=== PATIENT | female | born 1950 | race Caucasian/White ===

== ENCOUNTER 2018-12-10 00:46 | Inpatient (IN) | payer MEDICARE, BC ==
[~2018-12-10] VITALS: Ht 170.2 cm; Wt 80.0 kg
[2018-12-10] VITALS (14 sets, daily range): BP systolic 120–177; BP diastolic 83–110
[~2018-12-10 00:46] MED LIST: ASCO10007 PO; ASPI-611 PO; CARV6.253 PO; CHOL10002 PO; CINN500C15 PEG; COCO1000 PO; ESTROGEN PELLET IM; LACT1CAP65 PO; LIOT5TAB7 PO; MAGN250T11 PO; MELA1TAB28 PO; METH500C6 PO; NIA500ERT PO; OMEG-107 PO; PRAS50CA2 PO; PROG100C6 PO; SAW450CA7 PO; SELE200T25 PO; TEST75PE9 IM; TURM500C7 PO; UBID100C16 PO; [UNRECOGNIZED DRUG - CODE] PO
[2018-12-10 01:32] LABS: PARTIAL THROMBOPLASTIN TIME 28 SECONDS (22-32)
[2018-12-10 01:36] LABS: ALANINE AMINOTRANSFERASE 29 U/L (12-78); ALBUMIN/GLOBULIN RATIO 1.2 (1.1-1.5); ALKALINE PHOSPHATASE 64 IU/L (46-116); ANION GAP 10 (8-16); ASPARTATE AMINO TRANSFERASE 13 U/L (10-37); BILIRUBIN,TOTAL 0.4 MG/DL (0.1-1.0); BLOOD UREA NITROGEN 15 MG/DL (7-18); CALCIUM 9.7 MG/DL (8.5-10.1); CHLORIDE 104 MMOL/L (99-107); CREATININE 0.88 MG/DL (0.40-0.90); GLUCOSE 112 MG/DL (70-104); POTASSIUM 3.7 MMOL/L (3.5-5.1); SODIUM 138 MMOL/L (135-145); TOTAL CARBON DIOXIDE 24.2 MMOL/L (24-32); TOTAL PROTEIN 7.3 G/DL (6.4-8.2); eGFR 64 ML/MIN
--- NOTE | 2018-12-10 01:43 | NUR ---
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 She also said that she has GERD, and that she had been doing alot of bending over. aware.
[2018-12-10 01:47] LABS: BASOPHILS % (AUTO) 0.6 % (0-1); EOSINOPHILS # (AUTO) 0.1 X10'3 (0-0.9); EOSINOPHILS % (AUTO) 1.7 % (0-6); HEMATOCRIT 44.9 % (35.0-45.0); HEMOGLOBIN 15.3 g/dl (12.0-16.0); LYMPHOCYTES # (AUTO) 1.4 X10'3 (1.1-4.8); LYMPHOCYTES % (AUTO) 19.6 % (21-51); MEAN CORPUSCULAR HEMOGLOBIN 30.5 PG (27.0-31.0); MEAN CORPUSCULAR HGB CONC 34.1 g/dL (33.0-36.5); MEAN CORPUSCULAR VOLUME 89.6 FL (78-98); MEAN PLATELET VOLUME 10.1 FL (7.4-10.4); MONOCYTES # (AUTO) 0.5 X10'3 (0-0.9); MONOCYTES % (AUTO) 6.7 % (2-12); NEUTROPHILS # (AUTO) 5.2 X10'3 (1.8-7.7); NEUTROPHILS % (AUTO) 71.4 % (42-75); PLATELET COUNT 248 X10'3 (140-440); RED BLOOD COUNT 5.01 X10'6 (4.20-5.60); RED CELL DISTRIBUTION WIDTH 13.8 % (11.5-14.5); WHITE BLOOD COUNT 7.3 X10'3 (4.5-11.0)
[2018-12-10] MEDS ORDERED: normal saline 1000ml 1,000 ML IV SCH (01:52)
[2018-12-10] MEDS ORDERED: aminophylline 250mg/10ml inj. IV PRN (01:55)
[2018-12-10] MEDS ORDERED: HYDROcodone/acetaminophen 5mg/325mg tablet PO PRN (01:55)
[2018-12-10] MEDS ORDERED: ondansetron/PF 4mg/2ml inj IV PRN (01:55)
[2018-12-10] MEDS ORDERED: mag hydrox/Alum hydrox/simeth 30ml oral suspension PO PRN (01:55)
[2018-12-10] MEDS ORDERED: regadenoson 0.4mg/5ml syringe IV ONE ×3 (01:55→12:40)
[2018-12-10] MEDS ORDERED: acetaminophen 325mg tablet PO PRN (01:55)
[2018-12-10] MEDS ORDERED: metoprolol tartrate 1mg/ml inj IV PRN (01:55)
[2018-12-10] MEDS ORDERED: nitroGLYCERIN 0.4mg SUBLingual tab SL PRN ×2 (01:55→22:55)
[2018-12-10] MEDS ORDERED: Melatonin 3mg tablet PO PRN (01:55)
[2018-12-10] MEDS ORDERED: magnesium hydroxide 30ml (MOM) UD suspension PO PRN (01:55)
[2018-12-10] MEDS ORDERED: aspirin 81mg tab.chew PO ONE (02:05)
[2018-12-10] MEDS: HYDROcodone/acetaminophen 10/325mg tab PO PRN ×2 (04:08→21:28)
--- NOTE | 2018-12-10 04:09 | NUR ---
MEDICATED FOR C/O L LATERAL CHEST PAIN, KEEPING PT AWAKE.
[2018-12-10 04:29] LABS: CHOL/HDL RATIO 5.1 (0.00-4.99); CHOLESTEROL 235 MG/DL (0-200); HDL CHOLESTEROL 46 MG/DL (35-60); LDL CHOLESTEROL 166 MG/DL (50-100); TRIGLYCERIDES 134 MG/DL (20-135)
--- NOTE | 2018-12-10 04:31 | NUR ---
ATTEMPTED TO CALL REPORT, RESEARCH EDITOR STATED THAT NURSES UPSTAIRS WILL CALL TO GET REPORT WHEN READY.
--- NOTE | 2018-12-10 04:55 | NUR ---
PAIN IMPROVED AFTER NORCO, PT NOW ABLE TO SLEEP.
--- NOTE | 2018-12-10 06:45 | NUR ---
Problems reprioritized. Patient report given, questions answered & plan of care reviewed with JONNIE Cuellar. Addendum: 12/10/18 at 0646 by Inés Warren RN Amended: Links added.
--- NOTE | 2018-12-10 07:07 | NUR ---
PAGER ID: [phone] MESSAGE: [phone] Britt Hernandez.trending upward. do you want another EKG? do you want proBNB? BP 177/106 man. R arm lying. any new orders? stress test this AM. Alisa [phone]
[2018-12-10] MEDS ORDERED: PANT20TA3 PO (07:56)
[2018-12-10] MEDS ORDERED: POTA10TA19 PO (07:57)
[2018-12-10] MEDS ORDERED: ACYC-202 PO (07:59)
[2018-12-10] MEDS ORDERED: CARSR60C PO (08:00)
--- NOTE | 2018-12-10 08:36 | NUR ---
PAGER ID: [phone] MESSAGE: [phone] Britt morrissey Nuc. med. not wanting to do stress test with SBP at 180. Pt. takes Coreg at home. Thank you Alisa [phone]
[2018-12-10] MEDS ORDERED: MAGN400C PO (09:50)
[2018-12-10] MEDS ORDERED: PANT-47 PO (09:50)
[2018-12-10] MEDS ORDERED: OMEG1CAP46 PO (09:52)
--- NOTE | 2018-12-10 10:49 | NUR ---
PAGER ID: [phone] MESSAGE: [id number] Britt Deng 188/90 auto 160/100 manual pt. states severe headache. Refusing anything medication for pain. DC fluids? BP MED? 1868
--- NOTE | 2018-12-10 10:58 | NUR ---
New order for once only 6.25mg Coreg PO
[2018-12-10] MEDS ORDERED: furosemide 20 MG/2 ML vial IV ONE (11:05)
[2018-12-10] MEDS: carvedilol 6.25mg tablet PO ONE ×2 (11:09→11:18)
[2018-12-10] MEDS: vitamin D (cholecalciferol) 1,000 unit tablet PO SCH (11:56)
[2018-12-10] MEDS ORDERED: aminophylline inj. 10 ML IV ONE (12:31)
--- NOTE | 2018-12-10 13:40 | NUR ---
PAGER ID: [phone] MESSAGE: [id number] Britt Deng pt. back from stress tests- results avail. to you? Pt wants to eat now. Can she have a diet please? Alisa [phone]
--- NOTE | 2018-12-10 13:44 | NUR ---
PAGER ID: [phone] MESSAGE: [id number] Britt Deng forgot to ask you- Did you want a forth troponin? Alisa [phone]
[2018-12-10] MEDS ORDERED: methylPREDNISolone sod succ 125mg/2ml vial IV SCH (16:00)
--- NOTE | 2018-12-10 19:26 | NUR ---
Patient in room DEVAN 360. I have received report from Alisa CRISTINA and had the opportunity to ask questions and assume patient care.
[2018-12-10] MEDS ORDERED: non-formulary drug (Melatonin/Pyridoxine HCl (B6) (Melatonin 3 mg Tablet) 3 TAB) PO SCH (21:00)
[2018-12-10] MEDS: niacin 500mg ER (Niaspan) tablet PO SCH (21:26)
[2018-12-10] MEDS: carvedilol 6.25mg tablet PO SCH (21:26)
--- NOTE | 2018-12-10 23:08 | NUR ---
At approx. 2230 pt was sitting forward in bed short of breath, nauseous and complaining of severe chest pain. Put on 2L via N/C, took vitals (158/104, 95% RA, HR 93) and an EKG. EKG was read by Dr Rushing in ED, no STEMI. Administered Zofran for nausea. Received order for Nitro, however at 2257 pt stated pain was completely gone and she was breathing easier. Nitro not administered and placed in pt specific in the omnicell. Will continue to monitor pt closely.
[2018-12-11] VITALS (14 sets, daily range): BP systolic 102–159; BP diastolic 72–106
--- NOTE | 2018-12-11 | NUR ---
Pt had second episode of severe chest pain. Administered SL Nitro and pain almost instantly went away. Pt has residual headache 8/, administered Tylenol. Will continue to monitor.
[2018-12-11] MEDS: nitroGLYCERIN 0.4mg SUBLingual tab SL PRN ×2 (01:41→11:12)
[2018-12-11] MEDS: HYDROcodone/acetaminophen 10/325mg tab PO PRN ×2 (01:43→20:35)
[2018-12-11] MEDS ORDERED: metoclopramide 5 mg/ml inj IV ONE (01:55)
[2018-12-11] MEDS ORDERED: diphenhydrAMINE 50 mg/ml inj IV ONE (01:55)
[2018-12-11 06:00] LABS: BASOPHILS % (AUTO) 0.5 % (0-1); EOSINOPHILS # (AUTO) 0.1 X10'3 (0-0.9); EOSINOPHILS % (AUTO) 1.4 % (0-6); HEMATOCRIT 45.9 % (35.0-45.0); HEMOGLOBIN 15.6 g/dl (12.0-16.0); LYMPHOCYTES # (AUTO) 1.9 X10'3 (1.1-4.8); LYMPHOCYTES % (AUTO) 27.4 % (21-51); MEAN CORPUSCULAR HEMOGLOBIN 30.4 PG (27.0-31.0); MEAN CORPUSCULAR HGB CONC 33.9 g/dL (33.0-36.5); MEAN CORPUSCULAR VOLUME 89.7 FL (78-98); MEAN PLATELET VOLUME 9.3 FL (7.4-10.4); MONOCYTES # (AUTO) 0.7 X10'3 (0-0.9); MONOCYTES % (AUTO) 9.4 % (2-12); NEUTROPHILS # (AUTO) 4.3 X10'3 (1.8-7.7); NEUTROPHILS % (AUTO) 61.3 % (42-75); PLATELET COUNT 205 X10'3 (140-440); RED BLOOD COUNT 5.12 X10'6 (4.20-5.60); RED CELL DISTRIBUTION WIDTH 13.7 % (11.5-14.5)
[2018-12-11 06:23] LABS: PARTIAL THROMBOPLASTIN TIME 27 SECONDS (22-32)
[2018-12-11 06:31] LABS: ANION GAP 12 (8-16); BLOOD UREA NITROGEN 20 MG/DL (7-18); BUN/CREATININE RATIO 21.3 (6.6-38.0); CALCIUM 9.9 MG/DL (8.5-10.1); CHLORIDE 104 MMOL/L (99-107); CREATININE 0.94 MG/DL (0.40-0.90); GLUCOSE 113 MG/DL (70-104); POTASSIUM 3.8 MMOL/L (3.5-5.1); SODIUM 139 MMOL/L (135-145); TOTAL CARBON DIOXIDE 22.6 MMOL/L (24-32); eGFR 60 ML/MIN
--- NOTE | 2018-12-11 06:53 | NUR ---
Problems reprioritized. Patient report given, questions answered & plan of care reviewed with Alisa CRISTINA.
[2018-12-11] MEDS ORDERED: non-formulary drug (Ubidecarenone (Coq-10) 100 MG) PO SCH (08:00)
[2018-12-11] MEDS: carvedilol 6.25mg tablet PO SCH ×2 (08:15→20:35)
[2018-12-11] MEDS: aspirin 81mg tablet.DR PO SCH (08:15)
[2018-12-11] MEDS: magnesium oxide 400mg tablet PO SCH (08:15)
[2018-12-11] MEDS: vitamin D (cholecalciferol) 1,000 unit tablet PO SCH (08:15)
[2018-12-11] MEDS: pantoprazole 40mg Tablet.DR PO SCH (08:15)
[2018-12-11] MEDS: acetaminophen 325mg tablet PO PRN ×2 (08:16)
--- NOTE | 2018-12-11 11:23 | NUR ---
Patient complaining of chest pain 7/10 or 8/10 gripping pain to chest radiates to left arm. Patients vitals 140/89 HR 61 Gave one dose of nitro. EKG done Dr Jimenez aware wants patient transferred to [facility] on Nitro drip.
[2018-12-11] MEDS ORDERED: nitroGLYCERIN-Tridil 50MG/D5W 250 ML IV PRN (11:24)
[2018-12-11] MEDS ORDERED: morphine 2 MG/ML inj. syringe IV ONE (11:30)
--- NOTE | 2018-12-11 11:30 | NUR ---
Dr Jimenez would like patient to have a one time dose of 1 Mg Morphine, Aware of allergies which is hallucinations. Ok to give per Dr Jimenez
--- NOTE | 2018-12-11 11:38 | NUR ---
Dr Manriquez aware of patients continuing to have chest pain BP 140/89 HR 61. We are transferring patient to Tele on Nitro drip No change in orders.
[2018-12-11] MEDS: normal saline 1000ml 1,000 ML IV SCH ×2 (11:39→16:56)
[2018-12-11] MEDS ORDERED: LIDOcaine 1% (10mg/ml)w/preservative injection 20ml MDV ONE (12:02)
[2018-12-11] MEDS ORDERED: fentaNYL/PF 50MCG/1 ML 2ML syringe ONE (12:02)
[2018-12-11] MEDS ORDERED: iohexol 350MG/ML 100ml bottle IV ONE ×2 (12:02→12:47)
[2018-12-11] MEDS ORDERED: midazolam 2 mg/2 ml injection ONE (12:02)
--- NOTE | 2018-12-11 12:20 | NUR ---
Patient taken to refuse laborer via wheel chair. label paster aware patient will be going to tele but we dont have room yet but will call when we get a room number.
[2018-12-11] MEDS ORDERED: heparin 1,000unit/ml 10ml vial 10 ML ONE (12:47)
--- NOTE | 2018-12-11 12:50 | NUR ---
Received report from Alisa. 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 Awaiting arrival to [facility] 6025V.
--- NOTE | 2018-12-11 12:59 | NUR ---
Gave report to JONNIE Forte. Belongings will be transfer to room 3014H.
[2018-12-11] MEDS ORDERED: ticagrelor 90mg tablet ONE (13:00)
--- NOTE | 2018-12-11 13:00 | NUR ---
Received from Alisa. Waiting for patient to arrive to [facility].
--- NOTE | 2018-12-11 13:25 | NUR ---
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 Transferred to bed. Patient VS: T: 98.2, HR 80, RR: 16, O2: 92% on room air, BP: 146/92. Patient's right groin puncture site assessed. No hematoma noted. Dressing CDI. Pedal and posterior tibial pulses present. Patient in no acute distress. Will continue to monitor. Dr. Manriquez's orders reviewed and faxed to pharmacy.
[2018-12-11] MEDS ORDERED: OXAZEpam 15mg capsule PO PRN (13:45)
[2018-12-11] MEDS ORDERED: proCHLORperazine 10 MG/2 ml inj IV PRN (13:45)
--- NOTE | 2018-12-11 18:30 | NUR ---
Problems reprioritized. Patient report given, questions answered & plan of care reviewed with Laxmi CRISTINA.
[2018-12-11] MEDS: niacin 500mg ER (Niaspan) tablet PO SCH (20:35)
[2018-12-12 02:00] VITALS: BP 106/64
[2018-12-12] MEDS: HYDROcodone/acetaminophen 10/325mg tab PO PRN (05:11)
[2018-12-12 06:02] LABS: BASOPHILS % (AUTO) 0.3 % (0-1); EOSINOPHILS # (AUTO) 0.1 X10'3 (0-0.9); EOSINOPHILS % (AUTO) 1.3 % (0-6); HEMATOCRIT 43.5 % (35.0-45.0); HEMOGLOBIN 15.1 g/dl (12.0-16.0); LYMPHOCYTES # (AUTO) 1.3 X10'3 (1.1-4.8); LYMPHOCYTES % (AUTO) 17.1 % (21-51); MEAN CORPUSCULAR HEMOGLOBIN 30.9 PG (27.0-31.0); MEAN CORPUSCULAR HGB CONC 34.7 g/dL (33.0-36.5); MEAN CORPUSCULAR VOLUME 89.1 FL (78-98); MEAN PLATELET VOLUME 9.3 FL (7.4-10.4); MONOCYTES # (AUTO) 0.6 X10'3 (0-0.9); MONOCYTES % (AUTO) 8.5 % (2-12); NEUTROPHILS # (AUTO) 5.4 X10'3 (1.8-7.7); NEUTROPHILS % (AUTO) 72.8 % (42-75); PLATELET COUNT 214 X10'3 (140-440); RED BLOOD COUNT 4.88 X10'6 (4.20-5.60); RED CELL DISTRIBUTION WIDTH 13.8 % (11.5-14.5); WHITE BLOOD COUNT 7.4 X10'3 (4.5-11.0)
[2018-12-12 06:08] LABS: ALBUMIN 3.6 G/DL (3.4-5.0); ANION GAP 10 (8-16); BLOOD UREA NITROGEN 19 MG/DL (7-18); CALCIUM 8.9 MG/DL (8.5-10.1); CHLORIDE 106 MMOL/L (99-107); CREATININE 0.95 MG/DL (0.40-0.90); GLUCOSE 111 MG/DL (70-104); POTASSIUM 3.9 MMOL/L (3.5-5.1); SODIUM 139 MMOL/L (135-145); TOTAL CARBON DIOXIDE 23.1 MMOL/L (24-32); eGFR 59 ML/MIN
--- NOTE | 2018-12-12 06:47 | NUR ---
Patient in room PCU 3015. I have received report from Laxmi CRISTINA and had the opportunity to ask questions and assume patient care.
[2018-12-12 07:00] VITALS: BP 121/82
[2018-12-12] MEDS ORDERED: dabigatran 150mg capsule PO SCH (08:00)
[2018-12-12] MEDS ORDERED: ticagrelor 90mg tablet PO SCH (08:00)
[2018-12-12] MEDS ORDERED: atorvastatin 20mg tablet PO SCH (08:00)
[2018-12-12] MEDS: vitamin D (cholecalciferol) 1,000 unit tablet PO SCH (08:04)
[2018-12-12] MEDS: carvedilol 6.25mg tablet PO SCH (08:04)
[2018-12-12] MEDS: aspirin 81mg tablet.DR PO SCH (08:04)
[2018-12-12] MEDS: pantoprazole 40mg Tablet.DR PO SCH (08:04)
[2018-12-12] MEDS: acetaminophen 325mg tablet PO PRN (08:05)
[2018-12-12] MEDS: magnesium oxide 400mg tablet PO SCH (08:05)
[2018-12-12 11:00] VITALS: BP 130/88
--- NOTE | 2018-12-12 12:54 | NUR ---
PAGER ID: [phone] MESSAGE: [id number] Britt Deng pt is wanting to go home as soon as possible, pt has been cleared by Cardiology team to go home. Thank you, Miladis #[phone]
[2018-12-12] MEDS ORDERED: TICA90TA PO (13:39)
[2018-12-12] MEDS ORDERED: ATOR20TA66 PO (13:39)
[2018-12-12] MEDS ORDERED: DABI150C PO (13:49)
--- NOTE | 2018-12-12 14:30 | NUR ---
Reviewed discharge instructions with pt and pt's family. New prescriptions called into [facility] in [place] by Jeremy CRISTINA. IV discontinued with canula intact and tele monitor removed. Pt taken to lobby via wheelchair. Pt left in private vehicle with all of her belongings accompanied by family. Pt alert and oriented X4 and all vital signs within normal limits.
== END 2018-12-12 14:30 | disposition home or self-care (01) | DRG 247 ==
LOC: ER 00:47 → UNDOADMOB 01:52 → SUR 3N 01:52 → INTOOBSV 01:52 → SUR 3N 01:55 → CMPBEDREQ 07:01 → OBSVTOIN 14:40 → PCU 3S 12-11 13:25
PROVIDERS: ADMIT Hospitalist; ATTEND Internal Medicine
PROC: 027035Z Dilation of Coronary Artery, One Artery with Two Drug-eluting Intraluminal Devices, Percutaneous Approach (ICD-10-PCS; principal; 2018-12-11)
PROC: 4A023N7 Measurement of Cardiac Sampling and Pressure, Left Heart, Percutaneous Approach (ICD-10-PCS; 2018-12-11)
PROC: B2151ZZ Fluoroscopy of Left Heart using Low Osmolar Contrast (ICD-10-PCS; 2018-12-11)
PROC: B2111ZZ Fluoroscopy of Multiple Coronary Arteries using Low Osmolar Contrast (ICD-10-PCS; 2018-12-11)
PROC: B41F1ZZ Fluoroscopy of Right Lower Extremity Arteries using Low Osmolar Contrast (ICD-10-PCS; 2018-12-11)
DX: I25.10 Atherosclerotic heart disease of native coronary artery without angina pectoris (principal); I10 Essential (primary) hypertension; K21.9 Gastro-esophageal reflux disease without esophagitis; I48.0 Paroxysmal atrial fibrillation; E78.5 Hyperlipidemia, unspecified; H93.19 Tinnitus, unspecified ear; Z90.710 Acquired absence of both cervix and uterus; Z88.6 Allergy status to analgesic agent; Z79.899 Other long term (current) drug therapy; Z85.3 Personal history of malignant neoplasm of breast; Z92.3 Personal history of irradiation; Z82.49 Family history of ischemic heart disease and other diseases of the circulatory system; Z59.9 Problem related to housing and economic circumstances, unspecified
CPT/HCPCS: 93458; 99285; C9600; 36415; 71045; 78452; 80048; 80053; 80061; 83880; 84484; 85025; 85610; 85730; 87070; 93005; 93017; 99152; 99153; A4620; A6257; A9500; C1760; C1769; C1874; G0378; J0280; J1200; J1644; J2001; J2250; J2270; J2405; J2765; J3010; J7030; Q9967

== ENCOUNTER 2022-04-01 10:51 | Observation (INO) | payer MEDICARE, BC ==
[~2022-04-01] VITALS: Ht 170.2 cm; Wt 88.7 kg
[2022-04-01] VITALS (18 sets, daily range): BP systolic 136–201; BP diastolic 84–103
[~2022-04-01 10:51] MED LIST changes: -ASCO10007 PO; +ATOR20TA66 PO; -CINN500C15 PEG; -COCO1000 PO; +DABI150C PO; -ESTROGEN PELLET IM; -LACT1CAP65 PO; -LIOT5TAB7 PO; -MAGN250T11 PO; -METH500C6 PO; -NIA500ERT PO; -OMEG-107 PO; +OMEG1CAP46 PO; +PANT-47 PO; -PRAS50CA2 PO; -PROG100C6 PO; -SAW450CA7 PO; -SELE200T25 PO; -TEST75PE9 IM; +TICA90TA PO; -TURM500C7 PO; -[UNRECOGNIZED DRUG - CODE] PO
[2022-04-01] MEDS ORDERED: diphenhydrAMINE 25mg capsule PO PRN (11:15)
[2022-04-01] MEDS ORDERED: LISI5TAB22 PO (11:30)
[2022-04-01] MEDS ORDERED: APIX5TAB3 PO (11:30)
[2022-04-01] MEDS ORDERED: MULT-1085 PO (11:30)
[2022-04-01] MEDS ORDERED: ACET-890 PO (11:30)
[2022-04-01] MEDS ORDERED: ATOR40TA72 PO (11:30)
[2022-04-01] MEDS: normal saline 1,000 ML IV SCH ×2 (11:54→21:15)
[2022-04-01 12:06] LABS: BASOPHILS % (AUTO) 0.5 % (0-1); EOSINOPHILS # (AUTO) 0.1 X10'3 (0-0.9); EOSINOPHILS % (AUTO) 1.8 % (0-6); HEMATOCRIT 40.9 % (35.0-45.0); HEMOGLOBIN 13.9 g/dl (12.0-16.0); LYMPHOCYTES # (AUTO) 1.4 X10'3 (1.1-4.8); LYMPHOCYTES % (AUTO) 28.5 % (21-51); MEAN CORPUSCULAR HEMOGLOBIN 29.7 PG (27.0-31.0); MEAN CORPUSCULAR HGB CONC 34.1 g/dL (33.0-36.5); MEAN PLATELET VOLUME 9.3 FL (7.4-10.4); MONOCYTES # (AUTO) 0.4 X10'3 (0-0.9); MONOCYTES % (AUTO) 7.6 % (2-12); NEUTROPHILS % (AUTO) 61.6 % (42-75); PLATELET COUNT 194 X10'3 (140-440); RED CELL DISTRIBUTION WIDTH 14.7 % (11.5-14.5); WHITE BLOOD COUNT 4.9 X10'3 (4.5-11.0)
[2022-04-01 12:14] LABS: ALBUMIN 4.2 G/DL (3.4-5.0); ANION GAP 9 (8-16); BLOOD UREA NITROGEN 13 MG/DL (7-18); BUN/CREATININE RATIO 17.8 (6.6-38.0); CALCIUM 9.3 MG/DL (8.5-10.1); CHLORIDE 105 MMOL/L (99-107); CREATININE 0.73 MG/DL (0.40-0.90); GLUCOSE 88 MG/DL (70-104); MAGNESIUM 1.8 MG/DL (1.5-2.4); POTASSIUM 3.6 MMOL/L (3.5-5.1); SODIUM 140 MMOL/L (135-145); TOTAL CARBON DIOXIDE 25.9 MMOL/L (24-32); eGFR 79 ML/MIN
[2022-04-01] MEDS ORDERED: fentaNYL/PF 50MCG/1 ML 2ML syringe ONE ×2 (13:56→20:36)
[2022-04-01] MEDS ORDERED: LIDOcaine 1% (10mg/ml) 2ml vial ONE (13:56)
[2022-04-01] MEDS ORDERED: nitroGLYCERIN-Tridil 50MG/D5W 250 ML IV ONE (13:56)
[2022-04-01] MEDS ORDERED: verapamil 2.5 mg/ml inj IV ONE (13:56)
[2022-04-01] MEDS ORDERED: heparin 1,000unit/ml 10ml vial 10 ML ONE ×2 (13:56→20:36)
[2022-04-01] MEDS ORDERED: midazolam 1 mg/ML 2ml injection ONE ×3 (13:56→20:36)
[2022-04-01] MEDS ORDERED: iohexol 350MG/ML 100ml bottle IV ONE ×3 (13:57→20:36)
[2022-04-01] MEDS ORDERED: LIDOcaine 1% 30ml preserv. free vial ONE ×2 (14:43→20:36)
[2022-04-01] MEDS ORDERED: clopidogrel 300mg tablet ONE (15:11)
[2022-04-01] MEDS: normal saline 1000ml 1,000 ML IV SCH ×2 (16:00→21:00)
[2022-04-01] MEDS ORDERED: HYDROcodone/acetaminophen 10/325mg tab PO PRN (16:00)
[2022-04-01] MEDS ORDERED: ondansetron/PF 4mg/2ml inj IV PRN (16:00)
[2022-04-01] MEDS ORDERED: HYDROcodone/acetaminophen 5mg/325mg tablet PO PRN (16:00)
--- NOTE | 2022-04-01 22:00 | NUR ---
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 Report given to Inés CRISTINA at bedside on PCU, 8045E. All questions answered.
[2022-04-01] MEDS ORDERED: acetaminophen 325mg tablet PO PRN ×2 (23:55)
[2022-04-02 00:45] VITALS: BP 152/90
[2022-04-02] MEDS: pantoprazole 40mg Tablet.DR PO SCH ×2 (00:55→07:50)
[2022-04-02 01:45] VITALS: BP 150/88
[2022-04-02] MEDS ORDERED: sucralfate 1 gm tablet PO ONE (02:05)
[2022-04-02 02:45] VITALS: BP 151/87
[2022-04-02 03:45] VITALS: BP 148/89
[2022-04-02 06:00] VITALS: BP 170/93
[2022-04-02 07:51] VITALS: BP_SYST 170
[2022-04-02] MEDS ORDERED: carvedilol 6.25mg tablet PO SCH (08:00)
[2022-04-02] MEDS ORDERED: lisinopril 5mg tablet PO SCH (08:00)
[2022-04-02] MEDS ORDERED: multivitamins, therapeutics tablet PO SCH (08:00)
[2022-04-02] MEDS ORDERED: atorvastatin 20mg tablet PO SCH (08:00)
[2022-04-02] MEDS ORDERED: apixaban 5mg tablet PO SCH (08:00)
--- NOTE | 2022-04-02 08:07 | NUR ---
Problems reprioritized. Patient report given, questions answered & plan of care reviewed with Clarita CRISTINA.
[2022-04-02] MEDS ORDERED: clopidogrel 75mg tablet PO SCH (09:00)
== END 2022-04-02 10:17 | disposition home or self-care (01) ==
LOC: SSTAY O 10:51 → PCU 3S 22:42
PROVIDERS: ADMIT Internal Medicine Cardiovascular Disease; ATTEND Internal Medicine Cardiovascular Disease
DX: I25.10 Atherosclerotic heart disease of native coronary artery without angina pectoris (principal); Z95.5 Presence of coronary angioplasty implant and graft; Z79.899 Other long term (current) drug therapy
CPT/HCPCS: 36415; 80048; 83735; 85025; 85610; 87081; 93005; 93454; 93458; C1725; C1751; C1758; C1760; C1769; C1874; C1894; C9600; G0378; J1644; J2250; J3010; J3490; J7030; Q0163; Q9967; 99152; 99153; A4620; A6258; A6402